=== PATIENT | female | born 1935 | race Caucasian/White ===

== ENCOUNTER 2017-03-29 08:05 | Emergency (ER) | payer MEDICARE, BC ==
[2017-03-29 08:18] VITALS: BP 140/65
--- NOTE | 2017-03-29 09:09 | EDM.PDOC ---
ED HPI GENERAL MEDICAL PROBLEM - General Chief Complaint: Lower Extremity Injury/Pain Stated Complaint: RIGHT KNEE PAIN Time Seen by Provider: 03/29/17 08:54 - History of Present Illness INITIAL COMMENTS - FREE TEXT/NARRATIVE: HISTORY AND PHYSICAL: History of present illness: Patient is an 81-year-old white female is a concern of acute right knee injury she states she developed some discomfort after bending over she denies no history of known knee problems her other concern is that no fever chills nausea vomiting or any other constitutional symptoms Review of systems: As per history of present illness and below otherwise all systems reviewed and negative. Past medical history: As per history of present illness and as reviewed below otherwise noncontributory. Surgical history: As per history of present illness and as reviewed below otherwise noncontributory. Social history: No reported history of drug or alcohol abuse. Family history: As per history of present illness and as reviewed below otherwise noncontributory. Physical exam: HEENT: Atraumatic, normocephalic, pupils reactive, negative for conjunctival pallor or scleral icterus, mucous membranes moist, throat clear, neck supple, nontender, trachea midline. Lungs: Clear to auscultation, breath sounds equal bilaterally, chest nontender. Heart: S1S2, regular, negative for clicks, rubs, or JVD. Abdomen: Soft, nondistended, nontender. Negative for masses or hepatosplenomegaly. Negative for costovertebral tenderness. Pelvis: Stable nontender. Genitourinary: Deferred. Rectal: Deferred. Extremities: Atraumatic, negative for cords or calf pain. Neurovascular unremarkable. The patient has no effusion she is no localized tenderness crepitation or point tenderness and he is not warm or erythematous Neuro: Awake, alert, oriented. Cranial nerves II through XII unremarkable. Cerebellum unremarkable. Motor and sensory unremarkable throughout. Exam nonfocal. Diagnostics: X-ray right knee Therapeutics: None Impression: #1 acute right knee pain #2 degenerative joint disease Definitive disposition and diagnosis as appropriate pending reevaluation and review of above. - Related Data Allergies Allergy/AdvReac Type Severity Reaction Status Date / Time etodolac [From Lodine] Allergy Other Verified 03/29/17 08:15 Adhesive from abdominal Allergy Blisters Uncoded 03/29/17 08:15 dressing Home Meds: Home Meds Simvastatin [Zocor] 20 mg PO BEDTIME 06/15/14 [History] Furosemide [Lasix] 20 mg PO DAILY 04/26/15 [History] Losartan Potassium 100 mg PO DAILY 04/26/15 [History] amLODIPine [Norvasc] 5 mg PO DAILY 04/26/15 [History] Acetaminophen [Tylenol Extra Strength] 1,000 mg PO DAILY 12/26/15 [History] Past Medical History HEENT History: Reports: Cataract, Impaired Vision Other HEENT History: wears glasses, has cataract in left eye Cardiovascular History: Reports: Heart Failure, High Cholesterol, Hypertension Other Cardiovascular History: Edema Respiratory History: Reports: Other (See Below) Other Respiratory History: Cough at night, "elevate my head and started taking Pepcid OTC at bedtime" Gastrointestinal History: Reports: Cholelithiasis, Colon Polyp, GERD Other Gastrointestinal History: Occas Heartburn Genitourinary History: Reports: UTI, Recurrent Other Genitourinary History: last UTI was last summer 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: Musculoskeletal History: Reports: Other (See Below) Other Musculoskeletal History: states currently has pain in right leg and right arm, she thinks is "bursitis" Neurological History: Reports: None Psychiatric History: Reports: None Endocrine/Metabolic History: Reports: None Hematologic History: Reports: Other (See Below) Other Hematologic History: DVT in legs during Immunologic History: Reports: None Oncologic (Cancer) History: Reports: None Dermatologic History: Reports: Urticaria Other Dermatologic History: current rash on right leg - Infectious Disease History Infectious Disease History: Reports: Chicken Pox, Measles, Mumps - Past Surgical History Head Surgeries/Procedures: Reports: None GI Surgical History: Reports: Cholecystectomy, Colonoscopy, Hernia, Abdominal Neurological Surgical History: Reports: None Dermatological Surgical History: Reports: None Social & Family History - Family History Family Medical History: Noncontributory - Tobacco Use Smoking Status *Q: Never Smoker Years of Tobacco use: 6 Used Tobacco, but Quit: Yes Month Tobacco Last Used: 1964 Second Hand Smoke Exposure: No - Caffeine Use Caffeine Use: Reports: Coffee - Recreational Drug Use Recreational Drug Use: No Drug Use in Last 12 Months: No - Living Situation & Occupation Living situation: Reports: Occupation: Retired Review of Systems - Review of Systems Review Of Systems: ROS reveals no pertinent complaints other than HPI. Trauma Exam - Physical Exam Exam: See Below (The dictation) Course - Vital Signs Last Recorded V/S: Last Vital Signs Temp 36.9 C 03/29/17 08:16 Pulse 77 03/29/17 08:16 Resp 18 03/29/17 08:16 BP 140/65 03/29/17 08:16 Pulse Ox 97 03/29/17 08:16 - Orders/Labs/Meds Orders: Active Orders 24 hr Category Date Time Status Knee 3V Rt [CR] Stat Exams 03/29/17 08:19 Taken Departure - Departure Time of Disposition: 09:08 Disposition: Home, Self-Care 01 Condition: good Clinical Impression: Degenerative joint disease, Knee pain - Discharge Information Forms: ED Department Discharge Additional Instructions: The following information is given to patients seen in the emergency department who are being discharged to home. This information is to outline your options for follow-up care. We provide all patients seen in our emergency department with a follow-up referral. The need for follow-up, as well as the timing and circumstances, are variable depending upon the specifics of your emergency department visit. If you don't have a primary care physician on staff, we will provide you with a referral. We always advise you to contact your personal physician following an emergency department visit to inform them of the circumstance of the visit and for follow-up with them and/or the need for any referrals to a consulting specialist. The emergency department will also refer you to a specialist when appropriate. This referral assures that you have the opportunity for followup care with a specialist. All of these measure are taken in an effort to provide you with optimal care, which includes your followup. Under all circumstances we always encourage you to contact your private physician who remains a resource for coordinating your care. When calling for followup care, please make the office aware that this follow-up is from your recent emergency room visit. If for any reason you are refused follow-up, please contact the [facility] emergency department at and asked to speak to the emergency department charge nurse. [facility] Professional Building [address] [place] [address], [address] [place] [address] Motrin/Tylenol as directed followup right medical doctor/orthopedic surgery about activity as discussed return as needed as discussed - My Orders Last 24 Hours: My Active Orders 03/29/17 08:19 Knee 3V Rt [CR] Stat - Assessment/Plan Last 24 Hours: My Active Orders 03/29/17 08:19 Knee 3V Rt [CR] Stat
--- NOTE | 2017-03-30 13:54 | CR ---
EXAM DATE: 03/29/17 PATIENT'S AGE: 81 Patient: JENN LYNN Facility: [place], [place] Site . Site : [id number] Study: XRay Knee Right [id number]/29/2017 8:34:01 AM Ordering Physician: Doctor Nolasco Final Report: HISTORY: Fall, knee injury. Technique: Right knee 3 views. Comparison: None. Findings: No fracture. No dislocation. Small patellofemoral marginal osteophytes. Joint spaces are otherwise preserved. Small joint effusion. Impression: Small joint effusion. No acute bone abnormality. Dictated by Victoriano Calvillo MD @ Mar 29 2017 8:49AM (Electronic Signature) Report Signed by Proxy. [facility] CENTERJesus
== END 2017-03-29 09:16 | disposition home or self-care (01) ==
LOC: MW.ED 08:05
DX: M19.90 Unspecified osteoarthritis, unspecified site (principal); M25.561 Pain in right knee; I10 Essential (primary) hypertension; I50.9 Heart failure, unspecified; E78.00 Pure hypercholesterolemia, unspecified; Z79.899 Other long term (current) drug therapy; Z88.8 Allergy status to other drugs, medicaments and biological substances; Z90.49 Acquired absence of other specified parts of digestive tract; Z98.890 Other specified postprocedural states
CPT/HCPCS: 73562-26-RT; 73562-RT; 99282; 99283

== ENCOUNTER 2020-05-21 08:22 | Day surgery (SDC) | payer MEDICARE, BC ==
[~2020-05-21 08:22] MED LIST: Lactated Ringers 1,000 ML IV SCH; Sodium Chloride 0.9% 10 ML SDV IV PRN; Sodium Chloride 0.9% 10 ML Syringe FLUSH PRN; Sodium Chloride 0.9% 2.5 ML Syringe FLUSH PRN
[2020-05-21] MEDS ORDERED: Lidocaine 2% 5 ML SDV ONE (08:27)
[2020-05-21] MEDS ORDERED: Propofol 200 MG/20 ML SDV ONE (08:27)
[2020-05-21] MEDS ORDERED: fentaNYL 100 MCG/2 ML SDV ONE (08:28)
--- NOTE | 2020-05-21 09:06 | PCM.PREANE ---
Preanesthetic Assessment - Anesthesia/Transfusion/Family Hx Anesthesia History: Prior Anesthesia Reaction Other Type of Anesthesia Reaction Comment: after Nat- returned to ER, low SaO2, confused, was flown to [place] Family History of Anesthesia Reaction: No Transfusion History: No Prior Transfusion(s) Intubation History: Unknown - Review of Systems General: No Symptoms Pulmonary: No Symptoms Cardiovascular: No Symptoms Gastrointestinal: No Symptoms, Other (h/o colon polyps and diverticulosis) Neurological: No Symptoms Other: Reports: None - Physical Assessment Vital Signs: Last Vital Signs Temp 36.9 C 05/21/20 08:42 Pulse 86 05/21/20 08:42 Resp 14 05/21/20 08:42 BP 138/70 05/21/20 08:42 Pulse Ox 96 05/21/20 08:42 Height: 5 ft 2 in Weight: 68.946 kg ASA Class: 2 Mental Status: Alert & Oriented x3 Airway Class: Mallampati = 2 Dentition: Reports: Dentures (upper and lower) Thyro-Mental Finger Breadths: 3 Mouth Opening Finger Breadths: 2 ROM/Head Extension: Full Lungs: Clear to Auscultation, Normal Respiratory Effort Cardiovascular: Regular Rate, Regular Rhythm - Allergies Allergies/Adverse Reactions: Allergies Allergy/AdvReac Type Severity Reaction Status Date / Time etodolac [From Lodine] Allergy Other Verified 05/21/20 08:56 Adhesive from abdominal Allergy Blisters Uncoded 05/15/20 12:35 dressing - Blood Blood Available: No - Anesthesia Plan Pre-Op Medication Ordered: None - Acknowledgements Anesthesia Type Planned: MAC Pt an Appropriate Candidate for the Planned Anesthesia: Yes Alternatives and Risks of Anesthesia Discussed w Pt/Guardian: Yes Pt/Guardian Understands and Agrees with Anesthesia Plan: Yes PreAnesthesia Questionnaire HEENT History: Reports: Cataract, Impaired Vision Other HEENT History: wears glasses, has upper and lower dentures Cardiovascular History: Reports: Heart Failure, High Cholesterol, Hypertension Other Cardiovascular History: Edema in legs- wears support hose Respiratory History: Reports: Sleep Apnea Other Respiratory History: uses CPAP every night Gastrointestinal History: Reports: Cholelithiasis, Colon Polyp, Diverticulosis, Hiatal Hernia, Other (See Below) Other Gastrointestinal History: Occas Heartburn, some fecal incontinence Genitourinary History: Reports: Urinary Incontinence, UTI, Recurrent 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: Musculoskeletal History: Neurological History: Reports: None Psychiatric History: Reports: None Endocrine/Metabolic History: Reports: None Hematologic History: Reports: Other (See Below) Other Hematologic History: blood clots in legs during - no treatment Immunologic History: Reports: None Oncologic (Cancer) History: Reports: None Dermatologic History: Reports: Urticaria Other Dermatologic History: current rash on right leg- thinks it from support hose - Infectious Disease History Infectious Disease History: Reports: Chicken Pox, Measles, Mumps - Past Surgical History Head Surgeries/Procedures: Reports: None HEENT Surgical History: Reports: None, Cataract Surgery Cardiovascular Surgical History: Reports: None Respiratory Surgical History: Reports: None GI Surgical History: Reports: Cholecystectomy, Colonoscopy (last one 5 years ago), Hernia, Abdominal Other GI Surgeries/Procedures: states hx of ventral hernia repair- or possible hiatial hernia repair Female Surgical History: Reports: Hysterectomy Other Female Surgeries/Procedures: "partial hysterectomy" Neurological Surgical History: Reports: None Dermatological Surgical History: Reports: None - SUBSTANCE USE Smoking Status *Q: Former Smoker (quit > 60 years ago) Tobacco Use Within Last Twelve Months: No Recreational Drug Use History: No - HOME MEDS Home Medications: Home Meds Simvastatin [Zocor] 20 mg PO BEDTIME 04/15/14 [History] Furosemide [Lasix] 20 mg PO QAM 04/26/15 [History] Losartan Potassium 100 mg PO QAM 04/26/15 [History] amLODIPine [Norvasc] 7.5 mg PO QAM 04/26/15 [History] Multivitamin 1 tab PO DAILY 05/15/20 [History] Potassium Gluconate [Potassium] 99 mg PO DAILY 05/15/20 [History] - CURRENT (IN HOUSE) MEDS Current Meds: Current Medications Lactated Ringer's (Ringers, Lactated) 1,000 mls @ 125 mls/hr IV ASDIRECTED JOCELIN Last Admin: 05/21/20 08:55 Dose: 125 mls/hr Documented by: Sodium Chloride (Saline Flush) 10 ml FLUSH ASDIRECTED PRN PRN Reason: Keep Vein Open Sodium Chloride (Saline Flush) 2.5 ml FLUSH ASDIRECTED PRN PRN Reason: Keep Vein Open Sodium Chloride (Saline Flush) 10 ml FLUSH ASDIRECTED PRN PRN Reason: Keep Vein Open Sodium Chloride (Saline Flush) 2.5 ml FLUSH ASDIRECTED PRN PRN Reason: Keep Vein Open Sodium Chloride (Normal Saline) 10 ml IV ASDIRECTED PRN PRN Reason: IV Use Discontinued Medications Fentanyl (Sublimaze) Confirm Administered Dose 100 mcg .ROUTE .STK-MED ONE Stop: 05/21/20 08:29 Lidocaine (Xylocaine-Mpf 2%) Confirm Administered Dose 5 ml .ROUTE .STK-MED ONE Stop: 05/21/20 08:28 Propofol (Diprivan 20 Ml) Confirm Administered Dose 200 mg .ROUTE .STK-MED ONE Stop: 05/21/20 08:28
--- NOTE | 2020-05-21 10:26 | PCM.OPNOTE ---
- General Post-Op/Procedure Note Date of Surgery/Procedure: 05/21/20 Operative Procedure(s): Diagnostic colonoscopy Findings: Diverticulosis throughout colon Pre Op Diagnosis: History of polyps, diverticulosis. family history of colon cancer Post-Op Diagnosis: Diverticulosis Anesthesia Technique: FLORENCIA Primary Surgeon: Homa Ndiaye Condition: Good
--- NOTE | 2020-05-21 10:45 | PCM.POSTAN ---
POST ANESTHESIA ASSESSMENT - MENTAL STATUS Mental Status: Alert, Oriented - VITAL SIGNS Vital Signs: Last Vital Signs Temp 36.4 C 05/21/20 10:16 Pulse 61 05/21/20 10:32 Resp 13 05/21/20 10:32 BP 119/54 L 05/21/20 10:32 Pulse Ox 96 05/21/20 10:32 - RESPIRATORY Respiratory Status: Respiratory Rate WNL, Airway Patent, O2 Saturation Stable - CARDIOVASCULAR CV Status: Pulse Rate WNL, Blood Pressure Stable - GASTROINTESTINAL GI Status: No Symptoms - PAIN Pain Score: 0 - POST OP HYDRATION Hydration Status: Adequate & Stable - OBSERVATIONS Free Text/Narrative:: No anesthesia problems
[2020-05-21 10:50] VITALS: BP 126/47; PULSE 63
--- NOTE | 2020-05-21 10:59 | PCM48HPAN ---
Post Anesthesia Note - EVALUATION WITHIN 48HRS OF ANESTHETIC Vital Signs in Normal Range: Yes Patient Participated in Evaluation: Yes Respiratory Function Stable: Yes Airway Patent: Yes Cardiovascular Function Stable: Yes Hydration Status Stable: Yes Pain Control Satisfactory: Yes Nausea and Vomiting Control Satisfactory: Yes Mental Status Recovered: Yes Vital Signs: Last Vital Signs Temp 36.5 C 05/21/20 10:38 Pulse 63 05/21/20 10:38 Resp 14 05/21/20 10:38 BP 126/47 L 05/21/20 10:38 Pulse Ox 94 L 05/21/20 10:38 - COMMENTS/OBSERVATIONS Free Text/Narrative:: No anesthesia problems
--- NOTE | 2020-05-21 14:29 | OR ---
SURGEON: HOMA NDIAYE MD DATE OF PROCEDURE: 05/21/2020 PREOPERATIVE DIAGNOSES: History of colon polyps, diverticulosis, family history of colon cancer. POSTOPERATIVE DIAGNOSIS: Diverticulosis. PROCEDURE PERFORMED: Diagnostic colonoscopy. PRIMARY SURGEON: Homa Ndiaye MD ANESTHESIA: MAC. INSTRUMENT USED: Olympus colonoscope. EXTENT OF EXAM: To the cecum. PREPARATION: Good. LIMITATIONS: None. INDICATIONS FOR EXAMINATION: The patient is an 84-year-old female who presents for a repeat colonoscopy. During her last colonoscopy, she was found to have colon polyps. The patient has been doing well, but is in need of a repeat colonoscopy. She has a known history of diverticulosis. She does have a brother who was diagnosed with colon cancer. I explained the procedure; expected perioperative course; and risks including bleeding, infection, or damage to surrounding structures including perforation. The patient verbalized understanding and wishes to proceed. PROCEDURE IN DETAIL: The patient was brought into the endoscopy suite and placed in the left lateral decubitus position. A time-out was completed verifying the patient's name, age, date of , allergies, and procedure to be performed. Monitored anesthesia care was induced and continuous oxygen was provided via nasal cannula throughout the procedure. After adequate sedation was achieved, a digital rectal exam was performed. This exam was within normal limits. A well-lubricated colonoscope was inserted in the rectum and advanced under direct visualization to the level of the cecum. The cecum was identified by both visual and anatomic landmarks. A photograph was taken of the cecal cap as well as with the scope retroflexed within the cecum. The scope was then fully withdrawn while examining the color, texture, anatomy, and integrity of the mucosa from the cecum to the anal canal. The patient was found to have multiple diverticula of varying sizes throughout the colon. There were no polyps identified. The scope was then brought into the rectum and retroflexed to allow visualization of the anal canal opening. This appeared normal and a photograph was taken. The scope was then straightened out and fully withdrawn. The cecum to anus time was 7 minutes. The patient tolerated the procedure well and was transferred to the PACU in stable condition. ENDOSCOPIC DIAGNOSIS: Diverticulosis. RECOMMENDATIONS: I visited with the patient in the postoperative area. She is aware of her diverticulosis. Given her age, I do not think she will require another colonoscopy unless she becomes symptomatic. She can follow up as needed. BRIAN / GRETA /[id number]
== END 2020-05-21 11:04 | disposition home or self-care (01) ==
LOC: MW.SDS 08:22
PROVIDERS: ATTEND Surgery
DX: Z12.11 Encounter for screening for malignant neoplasm of colon (principal); K57.30 Diverticulosis of large intestine without perforation or abscess without bleeding; I10 Essential (primary) hypertension; E78.00 Pure hypercholesterolemia, unspecified; Z87.891 Personal history of nicotine dependence; K43.9 Ventral hernia without obstruction or gangrene; G47.30 Sleep apnea, unspecified; Z80.0 Family history of malignant neoplasm of digestive organs; Z86.010 Personal history of colon polyps; Z79.899 Other long term (current) drug therapy; Z90.49 Acquired absence of other specified parts of digestive tract; Z88.8 Allergy status to other drugs, medicaments and biological substances
CPT/HCPCS: 00812; J2001; J2704; J3010; J7120

== ENCOUNTER 2020-11-06 16:58 | Emergency (ER) | payer MEDICARE, BC ==
--- NOTE | 2020-11-06 17:41 | EDM.PDOC ---
ED HPI GENERAL MEDICAL PROBLEM - General Chief Complaint: Genitourinary Problem Stated Complaint: LT SIDE GROIN PAIN, FEVER Time Seen by Provider: 11/06/20 17:17 Source of Information: Reports: Patient History Limitations: Reports: No Limitations - History of Present Illness INITIAL COMMENTS - FREE TEXT/NARRATIVE: Patient is an 85-year-old female who presents today for left lower quadrant pain. Patient states she has some plugged sensation in her left lower quadrant felt as if she has some gas. Patient had a bowel movement the pain was still there. Patient that she still tolerating p.o. has no nausea vomiting chest pain. Patient denies any urinary symptoms but has recurrent UTIs. Patient denies any fevers or chills or other complaints. groin Pain Score (Numeric/FACES): 5 - Related Data Allergies Allergy/AdvReac Type Severity Reaction Status Date / Time etodolac [From Lodine] Allergy Other Verified 11/06/20 17:19 Adhesive from abdominal Allergy Blisters Uncoded 11/06/20 17:19 dressing Home Meds: Home Meds Simvastatin [Zocor] 20 mg PO BEDTIME 04/15/14 [History] Furosemide [Lasix] 20 mg PO QAM 04/26/15 [History] Losartan Potassium 100 mg PO QAM 04/26/15 [History] amLODIPine [Norvasc] 7.5 mg PO QAM 04/26/15 [History] Multivitamin 1 tab PO DAILY 05/15/20 [History] Potassium Gluconate [Potassium] 99 mg PO DAILY 05/15/20 [History] Past Medical History HEENT History: Reports: Cataract, Impaired Vision Other HEENT History: wears glasses, has upper and lower dentures Cardiovascular History: Reports: Heart Failure, High Cholesterol, Hypertension Other Cardiovascular History: Edema in legs- wears support hose Respiratory History: Reports: Sleep Apnea Other Respiratory History: uses CPAP every night Gastrointestinal History: Reports: Cholelithiasis, Colon Polyp, Diverticulosis, Hiatal Hernia, Other (See Below) Other Gastrointestinal History: Occas Heartburn, some fecal incontinence Genitourinary History: Reports: Urinary Incontinence, UTI, 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: Musculoskeletal History: Neurological History: Reports: None Psychiatric History: Reports: None Endocrine/Metabolic History: Reports: None Hematologic History: Reports: Other (See Below) Other Hematologic History: blood clots in legs during - no treatment Immunologic History: Reports: None Oncologic (Cancer) History: Reports: None Dermatologic History: Reports: Urticaria Other Dermatologic History: current rash on right leg- thinks it from support hose - Infectious Disease History Infectious Disease History: Reports: Chicken Pox, Measles, Mumps - Past Surgical History Head Surgeries/Procedures: Reports: None HEENT Surgical History: Reports: None, Cataract Surgery Cardiovascular Surgical History: Reports: None Respiratory Surgical History: Reports: None GI Surgical History: Reports: Cholecystectomy, Colonoscopy, Hernia, Abdominal Other GI Surgeries/Procedures: states hx of ventral hernia repair- or possible hiatial hernia repair Female Surgical History: Reports: Hysterectomy Other Female Surgeries/Procedures: "partial hysterectomy" Neurological Surgical History: Reports: None Dermatological Surgical History: Reports: None Social & Family History - Family History Family Medical History: No Pertinent Family History - Tobacco Use Tobacco Use Status *Q: Never Tobacco User - Caffeine Use Caffeine Use: Reports: None - Recreational Drug Use Recreational Drug Use: No - Living Situation & Occupation Living situation: Reports: Occupation: Retired ED ROS GENERAL - Review of Systems Review Of Systems: See Below Constitutional: Reports: No Symptoms HEENT: Reports: No Symptoms Respiratory: Reports: No Symptoms Cardiovascular: Reports: No Symptoms Endocrine: Reports: No Symptoms GI/Abdominal: Reports: Abdominal Pain : Reports: No Symptoms Musculoskeletal: Reports: No Symptoms Skin: Reports: No Symptoms Neurological: Reports: No Symptoms Psychiatric: Reports: No Symptoms Hematologic/Lymphatic: Reports: No Symptoms Immunologic: Reports: No Symptoms ED EXAM, GENERAL - Physical Exam Exam: See Below Exam Limited By: No Limitations General Appearance: Alert, WD/WN Eye Exam: Bilateral Eye: EOMI, PERRL Head: Atraumatic Respiratory/Chest: No Respiratory Distress, Lungs Clear Cardiovascular: Normal Peripheral Pulses, Regular Rate, Rhythm GI/Abdominal: Normal Bowel Sounds, Soft, No Distention, Tender Neurological: Alert, Oriented, Normal Cognition #1 Interpretation EKG Date: 11/06/20 Time: 15:40 Rhythm: NSR Rate (Beats/Min): 87 ST-T: Normal Course - Vital Signs Last Recorded V/S: Last Vital Signs Temp 97.5 F 11/06/20 17:16 Pulse 114 H 11/06/20 17:16 Resp 18 11/06/20 17:16 BP 119/54 L 11/06/20 17:16 Pulse Ox 93 L 11/06/20 17:16 - Orders/Labs/Meds Orders: Active Orders 24 hr Category Date Time Status Abdomen Pelvis w Cont [CT] Stat Exams 11/06/20 18:25 Taken UA W/SANJU RFLX IF INDICATED [URIN] Stat Lab 11/06/20 18:10 Received Labs: Laboratory Tests 11/06/20 11/06/20 Range/Units 17:27 17:27 WBC 13.42 H (4.0-11.0) K/uL RBC 4.41 (4.30-5.90) M/uL Hgb 12.9 (12.0-16.0) g/dL Hct 39.5 (36.0-46.0) % MCV 89.6 (80.0-98.0) fL MCH 29.3 (27.0-32.0) pg MCHC 32.7 (31.0-37.0) g/dL RDW Std Deviation 43.6 (28.0-62.0) fl RDW Coeff of Narcisa 13 (11.0-15.0) % Plt Count 197 (150-400) K/uL MPV 9.90 (7.40-12.00) fL Neut % (Auto) 94.4 H (48.0-80.0) % Lymph % (Auto) 3.9 L (16.0-40.0) % [place] % (Auto) 1.5 (0.0-15.0) % Eos % (Auto) 0.1 (0.0-7.0) % Baso % (Auto) 0.1 (0.0-1.5) % Neut # (Auto) 12.7 H (1.4-5.7) K/uL Lymph # (Auto) 0.5 L (0.6-2.4) K/uL [place] # (Auto) 0.2 (0.0-0.8) K/uL Eos # (Auto) 0.0 (0.0-0.7) K/uL Baso # (Auto) 0.0 (0.0-0.1) K/uL Nucleated RBC % 0.0 /100WBC Nucleated RBCs # 0 K/uL Sodium 141 (136-145) mmol/L Potassium 4.0 (3.5-5.1) mmol/L Chloride 105 (98-107) mmol/L Carbon Dioxide 24.1 (21.0-32.0) mmol/L BUN 18 (7.0-18.0) mg/dL Creatinine 1.2 H (0.6-1.0) mg/dL Est Cr Clr Drug Dosing 31.40 mL/min Estimated GFR (MDRD) 42.8 ml/min Glucose 132 H (74-106) mg/dL Calcium 8.7 (8.5-10.1) mg/dL Phosphorus 2.2 L (2.6-4.7) mg/dL Magnesium 1.6 L (1.8-2.4) mg/dL Total Bilirubin 1.9 H (0.2-1.0) mg/dL AST 21 (15-37) IU/L ALT 24 (14-63) IU/L Alkaline Phosphatase 71 (46-116) U/L Total Protein 7.1 (6.4-8.2) g/dL Albumin 3.2 L (3.4-5.0) g/dL Globulin 3.9 (2.6-4.0) g/dL Albumin/Globulin Ratio 0.8 L (0.9-1.6) Lipase 52 L (73-393) U/L Meds: Medications Discontinued Medications Generic Name Dose Route Start Last Admin Trade Name Jay PRN Reason Stop Dose Admin Iopamidol 100 ml 11/06/20 18:31 11/06/20 18:38 Isovue Multipack-370 (76%) IVPUSH 11/06/20 18:32 100 ml ONETIME STA Administration - Re-Assessments/Exams Free Text/Narrative Re-Assessment/Exam: 11/06/20 18:[address] is pending his CT is negative patient can likely be discharged home will be signed out to oncoming attending. Departure - Departure Time of Disposition: 18:55 Disposition: Still A Patient 30 Condition: Good Clinical Impression: Abdominal pain - Discharge Information Referrals: Sidra Varghese, [employer] C[employer] WORKER [Primary Care Provider] - Forms: ED Department Discharge Sepsis Event Note (ED) - Evaluation Sepsis Screening Result: No Definite Risk - Focused Exam Vital Signs: Vital Signs Temp Pulse Resp BP Pulse Ox 11/06/20 17:16 97.5 F 114 H 18 119/54 L 93 L - My Orders Last 24 Hours: My Active Orders 11/06/20 18:10 UA W/SANJU RFLX IF INDICATED [URIN] Stat 11/06/20 18:25 Abdomen Pelvis w Cont [CT] Stat - Assessment/Plan Last 24 Hours: My Active Orders 11/06/20 18:10 UA W/SANJU RFLX IF INDICATED [URIN] Stat 11/06/20 18:25 Abdomen Pelvis w Cont [CT] Stat Assessment:: She is 85-year-old female who presents today for left lower quadrant pain. At this times pt does not want any pain medicine states she feels comfortable without medicines. Patient has some tenderness on examination. Unclear cause of pain could be a different diverticulitis will obtain labs and CAT scan to reassess.
[2020-11-06 18:02] LABS: CARBON DIOXIDE,CO2 24.1 mmol/L (21.0-32.0)
[2020-11-06] MEDS ORDERED: Iopamidol 755 MG/ML 500 ML Multipack Bottle IVPUSH STA (18:31)
[2020-11-06] MEDS ORDERED: Piperacillin/Tazobactam 4.5 GM in Sodium Chloride 0.9% 100 ML IV ONE (19:17)
--- NOTE | 2020-11-06 19:18 | CT ---
INDICATION: Left lower quadrant pain TECHNIQUE: CT abdomen and pelvis acquired with IV contrast. 100 mL of Isovue 370 administered. COMPARISON: The pelvic CT dated 04/22/2020 FINDINGS: Lower chest: Subsegmental atelectasis. Liver: Small ill-defined foci of subcapsular hypodensity near the gallbladder fossa which could represent foci of fatty infiltration or of mild scarring. Spleen: Unremarkable. Pancreas: Unremarkable. Gallbladder and bile ducts: Cholecystectomy. Adrenal glands: Unremarkable. Kidneys: No hydronephrosis. Bilateral renal cysts and foci of mild cortical scarring. GI tract: A 2.1 x 2.5 x 2.4 cm ovoid soft tissue density along the serosal surface of the proximal gastric body on images 44-50, containing a small calcification. A distal duodenal diverticulum. A 4.1 x 4.0 x 3.7 cm collection of fluid, gas and debris with thin peripheral soft tissue wall in the left lower abdomen adjacent to a focally thick walled small bowel segment, with extension of a portion of the collection through the mesenteric wall of the adjacent small bowel segment on image 83 of series 201, and adjacent mesenteric edema and stranding. Adjacent small bowel diverticula seen on image 33 of series 203. No mechanical bowel obstruction. A lateral right pelvic wall hernia again seen, containing fat, a non dilated appendix and small fluid. Colonic diverticulosis without colonic diverticulitis. Vascular structures: Atherosclerotic changes. Lymph nodes: Unremarkable. Miscellaneous: Small fluid in the left abdominal mesentery and pelvis. No free air. A fat containing right posterolateral abdominal wall/flank hernia, posterior to the right kidney. Pelvic Organs: Small foci of gas within the bladder with mild bladder wall prominence and mild pericystic stranding. Hysterectomy. A 1 cm left adnexal low-density structure on image 120. Bones: Unremarkable for age. IMPRESSION: A 4.1 cm collection of fluid, gas and debris adjacent to a thick-walled small bowel segment in the left abdomen, with surrounding edema and small fluid, and extension of the collection/structure through the adjacent bowel wall. The findings are suggestive of small-bowel diverticulitis with a large inflamed diverticulum, given adjacent small bowel diverticula. A loculated perforation and abscess formation is another consideration. A 2.5 cm soft tissue density along the serosal surface of the proximal gastric body concerning for neoplasm. Recommend further evaluation with PET-CT. Small foci of gas in the urinary bladder with mild bladder wall thickening and adjacent stranding, suggestive of a gas-forming UTI, if there is no history of recent instrumentation. Correlate clinically. A right lateral pelvic hernia containing fat, a normal caliber appendix and small fluid. A fat containing right posterolateral abdominal wall hernia. A 1 cm left adnexal low-density structure. Follow-up sonographically in a patient of this age. The findings were discussed with Dr. Madrigal, by phone, on 11/06/2020 at 7:15 p.m.. Please note that all CT scans at this facility use dose modulation, iterative reconstruction, and/or weight-based dosing when appropriate to reduce radiation dose to as low as reasonably achievable. Dictated by Tom Kelsey MD @ Nov 06 2020 6:46PM Signed by Dr. Tmo Kelsey @ Nov 06 2020 7:16PM
[2020-11-06] MEDS ORDERED: metroNIDAZOLE/Normal Saline 500 MG in Premix Bag 1 BAG IV ONE (19:36)
[2020-11-06 20:12] VITALS: BP 106/52; PULSE 71
== END 2020-11-06 20:52 ==
LOC: MW.ED 16:58
DX: R10.32 Left lower quadrant pain (principal); I11.0 Hypertensive heart disease with heart failure; I50.9 Heart failure, unspecified; E78.00 Pure hypercholesterolemia, unspecified; Z88.8 Allergy status to other drugs, medicaments and biological substances; Z91.048 Other nonmedicinal substance allergy status; Z79.899 Other long term (current) drug therapy; Z20.822 Contact with and (suspected) exposure to COVID-19
CPT/HCPCS: 36415; 74177; 80053; 81001; 83690; 83735; 84100; 85025; 93005; 96365; 96375; 99285; J2543; J3490; J7050; Q9967; U0002; 93010; 99284

== ENCOUNTER 2023-03-27 15:31 | Emergency (ER) | payer MEDICARE, BC ==
[2023-03-27 17:26] VITALS: BP 149/60; PULSE 68
== END 2023-03-27 17:44 | disposition home or self-care (01) ==
LOC: MW.ED 15:31
DX: M25.562 Pain in left knee (principal); I11.0 Hypertensive heart disease with heart failure; I50.9 Heart failure, unspecified; E78.00 Pure hypercholesterolemia, unspecified; Z91.048 Other nonmedicinal substance allergy status; Z88.5 Allergy status to narcotic agent; Z79.899 Other long term (current) drug therapy
CPT/HCPCS: 73562-26-LT; 73562-LT; 99283